=== PATIENT | male | born 1950 | race Caucasian/White ===

== ENCOUNTER 2019-10-24 14:37 | Outpatient (CLI) | payer MEDICARE, SELFPAY ==
[2019-10-24 14:45] LABS: Hematocrit 50.4 % (37.0-46.0); Hemoglobin 16.9 g/dL (12.4-15.3); Mean Corpuscular HGB Conc 33.5 g/dL (32.0-36.0); Mean Corpuscular Hemoglobin 36.3 pg (27.0-31.0); Mean Corpuscular Volume 108.2 fL (78.0-102.0); Mean Platelet Volume 8.8 fl (8.7-11.0); Platelet Count Result 225 K/mm3 (150-420); Red Blood Count 4.66 M/mm3 (4.70-6.10); Red Cell Distribution Width 13.1 % (11.6-14.4); White Blood Count 12.2 K/mm3 (4.8-10.8)
[2019-10-24 15:29] LABS: Alanine Aminotransferase 31 U/L (16-63); Albumin Level 3.3 g/dL (3.4-5.0); Alkaline Phosphatase 81 U/L (46-116); Anion Gap 8.3 mmol/L (7-16); Aspartate Amino Transferase 22 U/L (15-37); Bilirubin,Total 0.4 mg/dL (0.00-1.00); Blood Urea Nitrogen 19 mg/dL (7-18); Calcium 9.2 mg/dL (8.5-10.1); Carbon Dioxide 33 mmol/L (21-32); Chloride 103 mmol/L (98-108); Cholesterol 163 mg/dL (0-200); Estimated Glomerular Filt Rate > 60; Glucose 103 mg/dL (70-99); HDL Direct 46 mg/dL (40-60); LDL Cholesterol Calculated 101 mg/dL (<130); Osmolality Calculated 292 mOsm/kg (285-295); Potassium 4.3 mmol/L (3.5-5.1); Sodium 140 mmol/L (136-145); Total Protein 7.2 g/dL (6.4-8.2); Triglycerides 82 mg/dL (0-150)
[2019-10-25 15:57] LABS: Ferritin 190 ng/mL (26-388); Iron 114 ug/dL (65-175); Percent Iron Saturation 39 % (12-57)
== END 2019-10-24 14:38 | disposition home or self-care (01) ==
LOC: CHSLAB 14:39
PROVIDERS: PCP Family Medicine; Visit Provider Family Medicine
DX: I10 Essential (primary) hypertension (principal)
CPT/HCPCS: 36415; 80053; 80061; 82728; 83540; 83550; 85027

== ENCOUNTER 2023-05-05 10:59 | Outpatient (CLI) | payer MEDICARE, OTHER, SELFPAY ==
[2023-05-05 11:30] LABS: Basophils Absolute Auto 0.09 K/mm3 (0.00-0.10); Basophils Percent Auto 0.9 % (0.0-1.0); Eosinophils Absolute Auto 0.27 K/mm3 (0.02-0.50); Eosinophils Percent Auto 2.8 % (1.0-6.0); Hematocrit 56.3 % (37.0-46.0); Hemoglobin 18.3 g/dL (12.4-15.3); Immature Granulocyte Absolute 0.11 K/mm3 (0.00-0.00); Immature Granulocyte Percent A 1.1 % (0.0-0.0); Lymphocytes Absolute Auto 2.28 K/mm3 (1.10-4.50); Lymphocytes Percent Auto 23.4 % (18.0-42.0); Mean Corpuscular HGB Conc 32.5 g/dL (32.0-36.0); Mean Corpuscular Hemoglobin 35.7 pg (27.0-31.0); Mean Platelet Volume 9.1 fl (8.7-11.0); Monocytes Absolute Auto 0.74 K/mm3 (0.10-0.90); Monocytes Percent Auto 7.6 % (2.0-11.0); Neutrophils Absolute Auto 6.2 K/mm3 (1.7-7.2); Neutrophils Percent Auto 64.2 % (50.0-70.0); Platelet Count Result 175 K/mm3 (150-420); Red Blood Count 5.12 M/mm3 (4.70-6.10); Red Cell Distribution Width 12.5 % (11.6-14.4); White Blood Count 9.7 K/mm3 (4.8-10.8)
[2023-05-05 12:12] LABS: Appearance Urine Clear (Clear); Bilirubin Urine 1+ (Negative); Blood Urine Negative (Negative); Glucose Urine UA Negative (Negative); Ketones Urine Negative (Negative); Leukocyte Esterase Ur Negative LEU/UL (Negative); Nitrate Urine Negative (Negative); Protein Urine Negative (Negative); Specific Grav Ur >= 1.030 (1.010-1.020); Urobilinogen Urine 0.2 mg/dL (0.2-1.0); pH Urine 5.5 (5.0-8.0)
[2023-05-05 12:20] LABS: Add Urine Microscopic? YES; Bacteria Urine Trace /hpf; Color Urine Dark Yellow (Yellow); Mucus Urine Moderate /lpf; RBC Urine None seen /hpf (0-2); WBC Urine None seen /hpf (0-3)
[2023-05-05 12:54] LABS: Alanine Aminotransferase 35 U/L (16-63); Albumin Level 3.5 g/dL (3.4-5.0); Alkaline Phosphatase 77 U/L (46-116); Anion Gap 4 mmol/L (8-16); Aspartate Amino Transferase 20 U/L (15-37); Bilirubin,Total 0.5 mg/dL (0.00-1.00); Blood Urea Nitrogen 14 mg/dL (7-18); Calcium 9.4 mg/dL (8.5-10.1); Carbon Dioxide 33 mmol/L (21-32); Chloride 101 mmol/L (98-108); Cholesterol 160 mg/dL (0-200); Estimated Glomerular Filt Rate > 60; Glucose 92 mg/dL (70-99); HDL Direct 42 mg/dL (40-60); LDL Cholesterol Calculated 108 mg/dL (<130); Osmolality Calculated 286 mOsm/kg (285-295); Potassium 4.6 mmol/L (3.5-5.1); Sodium 138 mmol/L (136-145); Total Protein 7.2 g/dL (6.4-8.2); Triglycerides 51 mg/dL (0-150)
[2023-05-05 13:15] LABS: Thyroid Stimulating Hormone Reflex 3.14 u/IU/mL (0.36-3.74)
[2023-05-06 09:20] LABS: Immature Reticulocyte Fraction 14.4 % (2.0-16.52); Reticulocyte Hemoglobin Conten 39.8 pg (28.0-35.0); Reticulocyte Percent 1.52 % (0.50-1.50); Reticulocytes Absolute 0.08 M/mm3 (0.02-0.1)
[2023-05-06 09:55] LABS: Vitamin B12 430 pg/mL (193-986)
[2023-05-08 06:27] LABS: Hemoglobin A1C 5.6 % (<5.7)
== END 2023-05-05 11:00 | disposition home or self-care (01) ==
LOC: CHSLAB 11:01
PROVIDERS: PCP Nurse Practitioner Family; Visit Provider Nurse Practitioner Family
DX: R73.09 Other abnormal glucose (principal); R35.81 Nocturnal polyuria; I10 Essential (primary) hypertension; R71.8 Other abnormality of red blood cells
CPT/HCPCS: 36415; 80053; 80061; 81001; 82607; 83036; 84443; 85025; 85046

== ENCOUNTER 2023-10-23 14:07 | Outpatient (NON) | payer MEDICARE, OTHER, SELFPAY | END 2023-10-23 14:08 | disposition home or self-care (01) | LOC: CHSLAB 14:09 | PROVIDERS: Visit Provider Nurse Practitioner Family | DX: Z98.890 Other specified postprocedural states (principal) | CPT/HCPCS: 87070; 87075; 87205 ==

== ENCOUNTER 2023-10-23 15:00 | Outpatient (CLI) | payer MEDICARE, OTHER, SELFPAY ==
--- NOTE | ~2023-10-23 | US_ITS ---
EXAMINATION: US soft tissue UE LT DATE: 10/23/2023 16:15 INDICATION: Left upper limb swelling TECHNIQUE: Multiple grayscale and Doppler ultrasound images of the region of concern at the left uppe r arm were obtained. COMPARISON: None FINDINGS: Refraction artifact is seen extending along the surgical wound at the region of concern. There is und erlying hypoechoic reticulated pattern of subcutaneous edema. No abscess or abnormal soft tissue mass es. Vascular flow is identified on color Doppler within an artery and pair of accompanying compressib le veins in the region of concern. IMPRESSION: 1. Subcutaneous edema without evident abscess or venous thrombosis in the left upper arm region of co ncern. Reviewed, dictated and finalized at location A. IMPRESSION: 1. Subcutaneous edema without evident abscess or venous thrombosis in the left upper arm region of concern.
== END 2023-10-23 15:01 | disposition home or self-care (01) ==
LOC: ANHIMG 15:00
PROVIDERS: PCP Nurse Practitioner Family; Visit Provider Nurse Practitioner Family
DX: M25.551 Pain in right hip (principal); Z98.890 Other specified postprocedural states
CPT/HCPCS: 76882

== ENCOUNTER 2024-03-12 14:03 | Outpatient (CLI) | payer MEDICARE, OTHER, SELFPAY ==
--- NOTE | ~2024-03-12 | XR_ITS ---
EXAMINATION: XR chest 2V Exam Date/Time: 03/12/2024 14:10 PSYCHOLOGY CLINICIAN HISTORY: SOB/wheezing Comparison: None. RESULT: Lines, tubes, and devices: Left lower neck surgical clips. Vascular stent over the upper mediastinum . Lungs and pleura: Streaky right basilar and subsegmental left basilar opacities. Left hemithorax vol ume loss. Mild right and moderate left costophrenic angle blunting. Cardiomediastinal silhouette: Stable. Other: No acute osseous or upper abdominal finding. IMPRESSION: Minimal right basilar and subsegmental left basilar atelectasis, infection not excluded. Small right and moderate left pleural effusions. Reviewed, dictated and finalized at location K. HOLOGY CLINICIAN
[2024-03-12 14:30] LABS: Basophils Absolute Auto 0.05 K/mm3 (0.00-0.10); Basophils Percent Auto 0.7 % (0.0-1.0); Eosinophils Absolute Auto 0.06 K/mm3 (0.02-0.50); Eosinophils Percent Auto 0.9 % (1.0-6.0); Hematocrit 48.7 % (37.0-46.0); Hemoglobin 15.1 g/dL (12.4-15.3); Immature Granulocyte Absolute 0.02 K/mm3 (0.00-0.00); Immature Granulocyte Percent A 0.3 % (0.0-0.0); Lymphocytes Percent Auto 20.3 % (18.0-42.0); Mean Corpuscular Hemoglobin 33.8 pg (27.0-31.0); Mean Corpuscular Volume 108.9 fL (78.0-102.0); Monocytes Absolute Auto 0.76 K/mm3 (0.10-0.90); Neutrophils Absolute Auto 4.61 K/mm3 (1.70-7.20); Neutrophils Percent Auto 66.8 % (50.0-70.0); Platelet Count Result 196 K/mm3 (150-420); Red Blood Count 4.47 M/mm3 (4.70-6.10); Red Cell Distribution Width 14.4 % (11.6-14.4); White Blood Count 6.9 K/mm3 (4.8-10.8)
[2024-03-12 14:54] LABS: Alanine Aminotransferase 26 U/L (16-63); Albumin Level 2.7 g/dL (3.4-5.0); Alkaline Phosphatase 107 U/L (46-116); Anion Gap 2 mmol/L (4-12); Aspartate Amino Transferase 20 U/L (15-37); Bilirubin,Total 0.5 mg/dL (0.00-1.00); Blood Urea Nitrogen 18 mg/dL (7-18); Carbon Dioxide 42 mmol/L (21-32); Chloride 103 mmol/L (98-108); Cholesterol 87 mg/dL (0-200); Estimated Glomerular Filt Rate > 60; Glucose 100 mg/dL (70-99); HDL Direct 45 mg/dL (40-60); LDL Cholesterol Calculated 33 mg/dL (<130); NT Pro B Type Natriuretic Pept 4192 pg/mL (0-125); Osmolality Calculated 305 mOsm/kg (285-295); Potassium 3.7 mmol/L (3.5-5.1); Sodium 147 mmol/L (136-145); Thyroid Stimulating Hormone 2.79 uIU/mL (0.36-3.74); Total Protein 6.9 g/dL (6.4-8.2); Triglycerides 47 mg/dL (0-150)
[2024-03-14 13:33] LABS: Iron 22 ug/dL (65-175); Percent Iron Saturation 6 % (12-57)
== END 2024-03-12 14:04 | disposition home or self-care (01) ==
LOC: CHSLAB 14:04
PROVIDERS: PCP Nurse Practitioner Family; Visit Provider Nurse Practitioner Family
DX: R60.0 Localized edema (principal); R35.81 Nocturnal polyuria; I63.239 Cerebral infarction due to unspecified occlusion or stenosis of unspecified carotid artery; R06.02 Shortness of breath; R09.89 Other specified symptoms and signs involving the circulatory and respiratory systems; R79.89 Other specified abnormal findings of blood chemistry; J98.11 Atelectasis; J90 Pleural effusion, not elsewhere classified
CPT/HCPCS: 36415; 71046; 80053; 80061; 83540; 83550; 83880; 84443; 85025

== ENCOUNTER 2024-03-14 15:45 | Outpatient (CLI) | payer MEDICARE, OTHER, SELFPAY ==
--- NOTE | 2024-03-14 16:03 | ECG_ITS ---
Test Date: 2024-03-14 16:13:50 Measurements Intervals [place] Rate: 83 P: 71 VA: 199 QRS: 95 QRSD: 95 T: 60 QT: 358 QTc: 423 Interpretive Statements SINUS RHYTHM WITH OCCASIONAL VENTRICULAR PREMATURE COMPLEXES RIGHT AXIS DEVIATION BORDERLINE R WAVE PROGRESSION, ANTERIOR LEADS MINIMAL Q WAVES- INFERIOR LEADS MODERATE T-WAVE ABNORMALITY, CONSIDER ANTERIOR ISCHEMIA ABNORMAL ECG No previous ECG available for comparison Electronically Signed On 03-14-2024 18:22:23 BRICK CLEANER by Héctor Fisher D.O.
[2024-03-14 16:17] LABS: INR 1.3; Prothrombin Time 13.5 Seconds (9.50-12.1)
[2024-03-14 16:20] LABS: D Dimer 1.29 mg/L (0.19-0.50)
== END 2024-03-14 15:46 | disposition home or self-care (01) ==
PROVIDERS: PCP Nurse Practitioner Family; Visit Provider Nurse Practitioner Family
DX: R79.89 Other specified abnormal findings of blood chemistry (principal); R09.89 Other specified symptoms and signs involving the circulatory and respiratory systems; R60.0 Localized edema; R06.02 Shortness of breath
CPT/HCPCS: 36415; 85380; 85610; 93005

== ENCOUNTER 2024-03-15 11:06 | Emergency (ER) | payer MEDICARE, OTHER, SELFPAY ==
[2024-03-15] VITALS (11 sets, daily range): BP systolic 130–164; BP diastolic 78–98; PULSE 71–84; RESP 18–21; TEMP 36.6; O2SAT 77–98
--- NOTE | ~2024-03-15 | XR_ITS ---
XR chest 1V portable Ordering provider: Jose Hood MD History: 73 years Male with . sob,FATIGUE . Comparison: March 12 2024 FINDINGS: MEDIASTINUM: The cardiac silhouette is moderately enlarged. Congestive adan. LUNGS: No pneumothorax. Opacification in the left lower lobe suggestive of atelectasis versus pneumon ia with pleural effusion. Bilateral interstitial changes. OTHER: No free air under the diaphragm. IMPRESSION: Cardiomegaly with cardiac decompensation and pulmonary edema. Left lower lobe atelectasis versus pneu monia with pleural effusion Reviewed, dictated and finalized at location A. RIBUTION LEAD IMPRESSION: Cardiomegaly with cardiac decompensation and pulmonary edema. Left lower lobe a telectasis versus pneumonia with pleural effusion
--- NOTE | ~2024-03-15 | CT_ITS ---
EXAMINATION: CTA chest PE protocol DATE: 03/15/2024 13:31 INDICATION: Shortness of breath. TECHNIQUE: Computed tomography angiography (CTA) of the chest was performed with 100 mL Omnipaque-350 intravenous contrast timed to evaluate the pulmonary arteries. Coronal maximum intensity projection 3D-reconstructions were created by the technologist. Automated exposure control and iterative reconst ruction technique were employed. The dose-length product was 720 mGy-cm. COMPARISON: Chest single view 03/15/2024 FINDINGS: There is mild elevation of left hemidiaphragm. There are small pleural effusions, left wors e than right. There is dependent atelectasis bilaterally. Calcified pulmonary nodules and calcified h ilar lymph nodes are consistent with old granulomatous disease. Cardiomegaly is noted. There is a tra ce pericardial effusion. The central pulmonaries are enlarged, consistent with pulmonary arterial hyp ertension. There is no pulmonary embolus. There is a moderate volume of ascites. There are bridging e ndplate osteophytes at multiple levels in the spine, consistent with diffuse idiopathic skeletal hype rostosis (DISH). IMPRESSION: 1. No pulmonary embolus. 2. Small pleural effusions, left worse than right. 3. Moderate volume of ascites. Reviewed, dictated and finalized at location A. TING TEACHER
--- NOTE | 2024-03-15 11:28 | ECG_ITS ---
Test Date: 2024-03-15 11:53:47 Measurements Intervals [place] Rate: 72 P: 83 [place]: 197 QRS: 77 QRSD: 96 T: 62 QT: 379 QTc: 417 Interpretive Statements SINUS RHYTHM LOW QRS VOLTAGE IN LIMB LEADS BORDERLINE R WAVE PROGRESSION, ANTERIOR LEADS T WAVE ABNORMALITY IN ANTERIOR LEADS- COSIDER ISCHEMIA BASELINE ARTIFACT- I, AVR, AVL, AVF, V3, V6 ABNORMAL ECG Compared to ECG 03/14/2024 16:13:50 NO SIGNIFICANT CHANGE Electronically Signed On 03-15-2024 12:08:15 CLIENT CARE REPRESENTATIVE by Héctor Fisher D.O.
--- NOTE | 2024-03-15 11:36 | ED.CHESTPAIN ---
HPI - Chest Pain General Chief Complaint: Recheck/Abnormal Lab/Rx Stated Complaint: abnormal lab results Time Seen by Provider: 03/15/24 11:25 Source: patient Mode of arrival: ambulatory Limitations: no limitations History of Present Illness HPI narrative: patient is a 73-year-old male with a significant past medical history that presents today for abnormal lab work. Patient by his primary care physician had lab work done and some that was abnormal and because of this she told him that she wanted him to go to the emergency department to get checked out. First full his BNP was over 4000 he does have a known history of heart failure however he has never had any testing done for this he has never done an echocardiogram for this and he does not see the doctor very often before this recent visit he had not seen a doctor and probably close to 10 years. His says he is very stubborn man comes to seeing physicians. He does also have some shortness of breath however he does wear 2 L of oxygen at home. She said he is not very compliant with wearing the oxygen at home however. He denies any chest pain. He does have lower extremity edema as well. This is chronic however he does wear for stockings as well. Pertinent past history: other (COPD) Onset (ago): day(s) Timing of current episode: constant Prior episodes: Yes Onset: during exertion Pain radiation: none Severity: mild Relieving factors: nothing Exacerbating factors: exertion and inspiration Associated symptoms: dyspnea Risk Factors Coronary artery disease risk factors: smoking history Thoracic aortic dissection risk factors: none Related Data Home Medications Medication Instructions Recorded Confirmed atorvastatin 40 mg tablet 40 mg PO DAILY 12/29/23 03/15/24 Allergies Allergy/AdvReac Type Severity Reaction Status Date / Time No Known Allergies Allergy Verified 03/15/24 11:41 Review of Systems Review of Systems: All systems reviewed & are unremarkable except as noted in HPI and below Constitutional: Constitutional: Reports as per HPI Eyes: Eyes: Reports no additional eye complaints ENT: Reports system reviewed and no additional complaints, except as documented Cardiovascular: Cardiovascular: Reports no additional cardiovascular complaints Respiratory: Respiratory: Reports as per HPI Gastrointestinal: Gastrointestinal: Reports no additional gastrointestinal complaints Genitourinary: Genitourinary: Reports no additional male genitourinary complaints Musculoskeletal: Musculoskeletal: Reports no additional musculoskeletal complaints Integumentary/Breasts: Skin/Breast: Reports system reviewed and no additional complaints, except as docu Neurologic: Reports system reviewed and no additional complaints, except as documented Psychiatric: Psychiatric: Reports no additional psychiatric complaints Endocrine: Endocrine: Reports no additional endocrine complaints Hematologic/Lymphatic: Hematologic/Lymphatic: Reports no additional hematologic/lymphatic complaints Allergic/Immunologic: Allergic/Immunologic: Reports no additional allergic/immunologic complaints [facility] Past Medical History Medical History Carotid artery stenosis with cerebral infarction Cigarette nicotine dependence HTN (hypertension) Hypertension Smoker Swelling of left upper extremity Surgical History Surgical History H/O endarterectomy History of appendectomy History of cholecystectomy Family History Family History Sibling Cancer Social History Social History Smoking packs per day: 1 Smoking cigarettes per day: 20.0 Years smoked: 40 Smoking pack-years: 40.00 Smoking status: Former smoker Tobacco type: cigarettes Alcohol intake: current Drinks per week: 8 Substance use type: does not use Do You Feel Safe in your Home?: Yes Lack of Transportation: No Lack of Food: Never True Current Housing: I Have Housing Concerned About Future Housing: No Difficulty Paying Gas/Electric Bills: No Difficulty Paying for Meds: No Currently Unemployed: No Education: High School Diploma/GED Difficulty w/ Childcare or Family Care: No Living arrangements: with family Additional living arrangements comments: Lives with significant other Occupation/Education: retired Gender identity (if verbalized by the patient): Male Exam Const: General: cooperative, healthy appearing, comfortable and no acute distress HENMT: Head: normal to inspection, No palpable skull fracture present and normocephalic Eyes: General: appearance normal, both eyes and all related structures Neck: Neck: normal visual inspection, full ROM and no lymphadenopathy Chest: Chest palpation & inspection: normal inspection of the chest and normal palpation of entire chest wall Resp: Effort & Inspection: normal respiratory effort and able to speak in complete sentences Auscultation: wheezes Percussion: percussion normal Cardio: Jugular venous distension: no JVD Palpation: normal PMI Rate: regular rate Rhythm: regular rhythm Heart sounds: S1 normal heart sound present and S2 normal heart sound present Bruits: Abdominal aortic bruit present Peripheral pulses: Peripheral pulses 2+ throughout Other: GI: Inspection: normal to inspection and abdominal wall ecchymosis Back/Spine/Pelvis: Back: no CVA tenderness Skin: General skin exam: normal color, no rashes or lesions noted and elasticity normal Neuro: General: oriented to person, oriented to place and oriented to time Extrem: General: normal to inspection, full ROM and capillary refill normal Psych: Appearance: grossly normal and well kempt Course Vital Signs Vital signs: Vital Signs Oxygen Delivery Room Air 03/15/24 11:06 Temperature 97.8 F 03/15/24 11:09 Pulse Rate 81 03/15/24 13:50 Respiratory Rate 21 H 03/15/24 13:50 Blood Pressure 164/95 H 03/15/24 13:50 Pulse Oximetry 97 03/15/24 13:50 Oxygen Delivery Nasal Cannula 03/15/24 11:30 Oxygen Flow Rate 3 03/15/24 11:30 MDM - Chest Pain MDM Narrative Medical decision making narrative: patient has seen a physician many years until recently. We had his lab work done his BNP was elevated over 4000 and he is on 2 L O2 at home. But he has had increased shortness of breath here lately and bilateral pitting edema on his lower extremities. We will redraw all his lab work including a BNP and troponins and do full cardiac workup, will also do a full respiratory workup with well and given a DuoNeb treatment and keep on nasal cannula O2 he is currently on 2 L. also give IV Lasix so gets some loose watery and off and get this BMP down. Differential Diagnosis Differential diagnosis: Likely other ( COPD exacerbation, heart failure exacerbation) Medical Records Data Attestation: I reviewed the patient's medical records. Lab Data Attestation: I reviewed the patient's lab results. 03/15/24 11:47 03/15/24 11:47 Labs: Lab Results 03/15/24 03/15/24 Range/Units 11:47 12:25 WBC 7.6 (4.8-10.8) K/mm3 RBC 4.39 L (4.70-6.10) M/mm3 Hgb 14.6 (12.4-15.3) g/dL Hct 47.0 H (37.0-46.0) % MCV 107.1 H (78.0-102.0) fL MCH 33.3 H (27.0-31.0) pg MCHC 31.1 L (32-36) g/dL RDW 14.6 H (11.6-14.4) % Plt Count 203 (150-420) K/mm3 MPV 9.0 (8.7-11.0) fl Immature Gran % (Auto) 0.1 H (0.0-0.0) % Neut % (Auto) 71.8 H (50.0-70.0) % Lymph % (Auto) 14.7 L (18.0-42.0) % [place] % (Auto) 11.8 H (2.0-11.0) % Eos % (Auto) 1.1 (1.0-6.0) % Baso % (Auto) 0.5 (0.0-1.0) % Lymph # (Auto) 1.11 (1.10-4.50) K/mm3 [place] # (Auto) 0.89 (0.10-0.90) K/mm3 Eos # (Auto) 0.08 (0.02-0.50) K/mm3 Baso # (Auto) 0.04 (0.00-0.10) K/mm3 Abs Immat Gran (auto) 0.01 H (0.00-0.00) K/mm3 Absolute Neuts (auto) 5.44 (1.70-7.20) K/mm3 Absolute Nucleated RBC 0.00 (0.00-0.00) K/mm3 Nucleated RBC % 0.0 (0-0.0) % D-Dimer 1.24 H* (0.19-0.50) mg/L Sodium 143 (136-145) mmol/L Potassium 4.0 (3.5-5.1) mmol/L Chloride 101 (98-108) mmol/L Carbon Dioxide 38 H (21-32) mmol/L Anion Gap 4 (4-12) mmol/L BUN 22 H (7-18) mg/dL Creatinine 1.06 (0.70-1.30) mg/dL Estim Creat Clear Calc 67 ml/min Estimated GFR > 60 (59 - ) Glucose 112 H (70-99) mg/dL Calculated Osmolality 300 H (285-295) mOsm/kg Calcium 9.1 (8.5-10.1) mg/dL Magnesium 2.3 (1.8-2.4) mg/dL Total Bilirubin 0.7 (0.00-1.00) mg/dL AST 20 (15-37) U/L ALT 25 (16-63) U/L Alkaline Phosphatase 112 (46-116) U/L Troponin I 20.3 (0.00-60.4) ng/L NT-Pro-B Natriuret Pep 4209 H (0-125) pg/mL Total Protein 6.6 (6.4-8.2) g/dL Albumin 2.6 L (3.4-5.0) g/dL Urine Color Light yellow (Yellow) Urine Appearance Clear (Clear) Urine pH 6.5 (5.0-8.0) Ur Specific [place] 1.010 (1.010-1.020) Urine Protein Negative (Negative) Urine Glucose (UA) Negative (Negative) Urine Ketones Negative (Negative) Ur Blood (Man) Negative (Negative) Urine Nitrate Negative (Negative) Urine Bilirubin Negative (Negative) Urine Urobilinogen 0.2 (0.2-1.0) mg/dL Leukocyte Esterase Rfl Negative (Negative) BHUPENDRA/UL Discharge Plan Discharge Clinical Impression: Pneumonia, Acute exacerbation of CHF (congestive heart failure), COPD (chronic obstructive pulmonary disease) Patient Disposition: Home, Self-Care Condition: Stable Instructions: Antibiotic Form Prescriptions: New doxycycline hyclate 100 mg tablet 100 mg PO BID Qty: 20 0RF amoxicillin-pot clavulanate 875-125 mg tablet 1 tablet PO Q12H Qty: 20 0RF furosemide 20 mg tablet 20 mg PO DAILY Qty: 30 0RF Breztri Aerosphere 160-9-4.8 mcg/actuation HFA aerosol inhaler 2 inh inhalation BID Qty: 10.7 0RF No Action aspirin [Aspir-81] 81 mg tablet,delayed release (DR/EC) 81 mg PO DAILY Qty: 90 0RF atorvastatin 40 mg tablet 40 mg PO DAILY albuterol sulfate 90 mcg/actuation HFA aerosol inhaler 1 puff inhalation Q4H PRN (Reason: shortness of breath or wheezing) Qty: 8.5 2RF metoprolol tartrate 25 mg tablet 12.5 mg PO BID Qty: 60 0RF doxycycline monohydrate 100 mg tablet 100 mg PO BID 10 Days Qty: 20 0RF lisinopril 5 mg tablet 5 mg PO DAILY Qty: 30 2RF torsemide 10 mg tablet 10 mg PO QAM Qty: 30 3RF Follow-up/Referrals: Renetta Mendoza APRN [Primary Care Provider] - Time of Disposition: 14:12
[2024-03-15] MEDS: methylPREDNISolone SOD SUCC 125 MG VIAL IV PUSH (11:50)
[2024-03-15] MEDS: FUROSEMIDE INJ 40 MG/4 ML VIAL IV PUSH (11:50)
[2024-03-15 11:52] LABS: Basophils Absolute Auto 0.04 K/mm3 (0.00-0.10); Basophils Percent Auto 0.5 % (0.0-1.0); Eosinophils Absolute Auto 0.08 K/mm3 (0.02-0.50); Eosinophils Percent Auto 1.1 % (1.0-6.0); Hemoglobin 14.6 g/dL (12.4-15.3); Immature Granulocyte Absolute 0.01 K/mm3 (0.00-0.00); Immature Granulocyte Percent A 0.1 % (0.0-0.0); Lymphocytes Absolute Auto 1.11 K/mm3 (1.10-4.50); Lymphocytes Percent Auto 14.7 % (18.0-42.0); Mean Corpuscular HGB Conc 31.1 g/dL (32-36); Mean Corpuscular Hemoglobin 33.3 pg (27.0-31.0); Mean Corpuscular Volume 107.1 fL (78.0-102.0); Monocytes Absolute Auto 0.89 K/mm3 (0.10-0.90); Monocytes Percent Auto 11.8 % (2.0-11.0); Neutrophils Absolute Auto 5.44 K/mm3 (1.70-7.20); Neutrophils Percent Auto 71.8 % (50.0-70.0); Platelet Count Result 203 K/mm3 (150-420); Red Blood Count 4.39 M/mm3 (4.70-6.10); Red Cell Distribution Width 14.6 % (11.6-14.4); White Blood Count 7.6 K/mm3 (4.8-10.8)
[2024-03-15 12:07] LABS: D Dimer 1.24 mg/L (0.19-0.50)
[2024-03-15 12:14] LABS: Alanine Aminotransferase 25 U/L (16-63); Albumin Level 2.6 g/dL (3.4-5.0); Alkaline Phosphatase 112 U/L (46-116); Anion Gap 4 mmol/L (4-12); Aspartate Amino Transferase 20 U/L (15-37); Bilirubin,Total 0.7 mg/dL (0.00-1.00); Blood Urea Nitrogen 22 mg/dL (7-18); Calcium 9.1 mg/dL (8.5-10.1); Carbon Dioxide 38 mmol/L (21-32); Chloride 101 mmol/L (98-108); Estimated CRCL calculation 67 ml/min; Estimated Glomerular Filt Rate > 60; Glucose 112 mg/dL (70-99); Magnesium 2.3 mg/dL (1.8-2.4); NT Pro B Type Natriuretic Pept 4209 pg/mL (0-125); Osmolality Calculated 300 mOsm/kg (285-295); Sodium 143 mmol/L (136-145); Total Protein 6.6 g/dL (6.4-8.2); Troponin I 20.3 ng/L (0.00-60.4)
[2024-03-15 12:28] LABS: Add Urine Microscopic? NO; Appearance Urine Clear (Clear); Bilirubin Urine Negative (Negative); Blood Urine Negative (Negative); Color Urine Light Yellow (Yellow); Glucose Urine UA Negative (Negative); Ketones Urine Negative (Negative); Leukocyte Esterase Ur Negative LEU/UL (Negative); Nitrate Urine Negative (Negative); Protein Urine Negative (Negative); Urobilinogen Urine 0.2 mg/dL (0.2-1.0); pH Urine 6.5 (5.0-8.0)
--- NOTE | 2024-03-15 13:12 | PC.NURSE ---
PT HAS COMPLETED 1ST ANTIBIOTIC, AWAITING CT AT THIS TIME. PT HAS SIG OTHER AT BEDSIDE. DENIES ANY NEEDS OR COMPLAINTS. NAD NOTED. WILL CONTINUE TO MONITOR.
[2024-03-15] MEDS: AZITHROMYCIN 500 MG/NS 250 ML 500 MG/250 ML BAG 250 MG IVPB (13:47)
--- NOTE | 2024-03-15 13:56 | PC.NURSE ---
PT HAS RETURNED FROM CT, HAS IV ANTIBIOTICS INFUSING ORDERED WITHOUT DIFFICULTY. PT IS EATING CHIPS AT THIS TIME, DECLINED SANDWICH. WATER AND WARM BLANKET PROVIDED. PT DENIES ANY COMPLAINTS. VSS PER MONITOR. WILL CONTINUE TO MONITOR.
== END 2024-03-15 15:00 | disposition home or self-care (01) ==
PROVIDERS: Emergency Provider Family Medicine; PCP Nurse Practitioner Family
DX: J18.9 Pneumonia, unspecified organism (principal); I11.0 Hypertensive heart disease with heart failure; I50.9 Heart failure, unspecified; I25.2 Old myocardial infarction; Z87.891 Personal history of nicotine dependence; Z99.81 Dependence on supplemental oxygen
CPT/HCPCS: 36415; 71045; 71275; 80053; 81003; 83735; 83880; 84484; 85025; 85380; 93005; 96365; 96367; 96375; 99284; J0456; J0696; J1940; J2919; Q9967

== ENCOUNTER 2024-03-17 11:51 | Outpatient (CLI) | payer MEDICARE, OTHER, SELFPAY ==
--- NOTE | 2024-03-17 11:55 | ECHO_ITS ---
Patient Info Name: Bassem Huffman Age: 73 years : 1950 Gender: Male Ht: 66 in Wt: 213 lbs BSA: 2.16 m2 HR: 70 bpm BP: 145 / 93 mmHg Heart Rhythm: Sinus Rhythm Technical Quality: Good Exam Date: 03/17/2024 12:44 PM Exam Location: [facility] Patient Status: Outpatient Admit Date: 03/17/2024 Staff Ordering Physician: Emerson Randhawa DO [employer] G[employer]er [employer] Lubricator Tender: Jose Pederson RDCS Attending Provider: Emerson Randhawa DO Referring Physician: Edsi SHERMAN; Exam Type: CA echo doppler color flow Study Info Indications - other specifgied postprocedural state Complete two-dimensional, color flow and Doppler transthoracic echocardiogram is performed. Summary 1. Complete two-dimensional, color flow and Doppler transthoracic echocardiogram is performed. 2. Left ventricular chamber dimension is normal. 3. Left ventricular systolic function is normal, estimated at 55-60%. 4. There is mild concentric increased left ventricular wall thickness. 5. The left ventricular diastolic function is grade I diastolic dysfunction. 6. Right atrial chamber dimension is mildly enlarged. 7. There is trace tricuspid valve regurgitation. 8. No pulmonary hypertension, estimated pulmonary arterial systolic pressure is 34 mmHg. 9. Dilated inferior vena cava with >50% collapse upon inspiration consistent with elevated right atrial pressure, 10 mmHg. 10. There is trivial pericardial effusion. Left Ventricle Tissue doppler E/e' is not measured. Left ventricular chamber dimension is normal. Left ventricular systolic function is normal, estimated at 55-60%. There is mild concentric increased left ventricular wall thickness. The left ventricular diastolic function is grade I diastolic dysfunction. Right Ventricle Right ventricular systolic function is normal and with normal TAPSE 2.3 cm. Right ventricular chamber dimension is normal. Left Atria Left atrial chamber dimension is normal. Right Atria Right atrial chamber dimension is mildly enlarged. Aortic Valve The aortic valve is trileaflet. There is no aortic valve stenosis. There is no aortic valve regurgitation. Pulmonic Valve There is no pulmonic regurgitation. Mitral Valve There is no mitral valve stenosis. There is no mitral valve regurgitation. Tricuspid Valve There is trace tricuspid valve regurgitation. No pulmonary hypertension, estimated pulmonary arterial systolic pressure is 34 mmHg. Pericardium/Pleural There is trivial pericardial effusion. Inferior Vena Cava Dilated inferior vena cava with >50% collapse upon inspiration consistent with elevated right atrial pressure, 10 mmHg. Aorta The aortic root size at the sinus of Valsalva is normal. Left Ventricular Outflow Tract Name Value Normal LVOT 2D LVOT Diameter 2.1 cm LVOT Doppler LVOT Peak Velocity 88 cm/s LVOT Peak Gradient 3 mmHg LVOT Mean Gradient 2 mmHg LVOT VTI 21 cm LVOT VTI/AV VTI Ratio 1.0 LVOT Stroke Volume 71 ml Tricuspid Valve Name Value Normal TV Regurgitation Doppler TR Peak Velocity 246 cm/s TR Peak Gradient 19 mmHg Estimated PAP/RSVP RA Pressure 10 mmHg <=5 PA Systolic Pressure 34 mmHg <36 RV Systolic Pressure 34 mmHg <36 Aortic Valve Name Value Normal AV Doppler AV Peak Velocity 102 cm/s AV Peak Gradient 4 mmHg AV Mean Gradient 3 mmHg AV VTI 21 cm AV Area (Cont Eq VTI) 3.3 cm2 >=3.0 AV Area (Cont Eq Kirk) 2.9 cm2 AV V1/V2 Ratio 0.86 AV Regurgitation 2D LVOT Area 3.3 cm2 Ventricles Name Value Normal LV Dimensions 2D/MM IVS Diastolic Thickness (2D) 1.3 cm 0.6-1.0 LVID Diastole (2D) 4.3 cm 4.2-5.8 LVIW Diastolic Thickness (2D) 1.2 cm 0.6-1.0 LVID Systole (2D) 2.8 cm 2.5-4.0 LVOT Diameter 2.1 cm LV Mass (2D Cubed) 197.28 g 88.00-224.00 LV Mass Index (2D Cubed) 91 g/m2 49-115 Relative Wall Thickness (2D) 0.57 LV Fractional Shortening/Ejection Fraction 2D/MM LV Fractional Shortening (2D) 35 % 25-43 LV EF (2D Teicholz) 65 % 52-72 LV Diastolic Volume (4C MOD) 132 ml LV EF (4C MOD) 50 % LV Diastolic Volume (2C MOD) 135 ml LV EF (2C MOD) 55 % LV Diastolic Volume (BP MOD) 134 ml 62-150 LV Diastolic Volume Index (BP MOD) 62 ml/m2 34-74 LV Systolic Volume (BP MOD) 64 ml 21-61 LV Systolic Volume Index (BP MOD) 30 ml/m2 11-31 LV EF (BP MOD) 52 % 52-72 LV Diastolic Length (4C) 9.1 cm LV Systolic Length (4C) 7.1 cm LV Stroke Volume (4C MOD) 66 ml Atria Name Value Normal LA Dimensions LA Volume (4C A-L) 44 ml LA Volume (BP A-L) 52 ml RA Dimensions RA Area (4C) 26.0 cm2 <=18.0 Report Signatures
== END 2024-03-17 11:52 | disposition home or self-care (01) ==
LOC: CHSIMG 11:51
PROVIDERS: PCP Nurse Practitioner Family; Visit Provider Family Medicine
DX: Z98.890 Other specified postprocedural states (principal); I50.1 Left ventricular failure, unspecified
CPT/HCPCS: 93306

== ENCOUNTER 2024-08-31 15:26 | Outpatient (CLI) | payer MEDICARE, SELFPAY ==
--- OUTSIDE RECORDS SUMMARY | 2024-08-31 16:19 | XMS_ITS | Clinical Summary ---
Author Organization [facility] Address [address] [place] [address] Care Team Providers Care Construction Plumber Name Role Phone Emerson Randhawa DO Primary Care Provider [phone] Allergies No known active allergies Medications lisinopril (PRINIVIL) 20 MG tablet Take 1 tablet (20 mg total) by mouth daily. Active aspirin EC (ASPIRIN EC) 81 MG tablet Take 1 tablet (81 mg total) by mouth daily. Active Active Problems Problem Noted Date Diagnosed Date Carotid stenosis 12/16/2023 S/P carotid endarterectomy 12/15/2023 Assessment & Plan (12/15/2023 8:25 PM CDT): Right side 12/15/2023 Carotid artery stenosis 10/09/2023 Suspected cerebrovascular accident (CVA) 024 Acute cholecystitis due to biliary calculus 03/05 Type 2 diabetes mellitus wit hout complications ([facility]) Family History Medical History Relation Comments Cancer Brother Early Brother Heart Disease Father Relation Status Comments Brother Father Social History Tobacco Use Types Packs/Day Years Used Date Smoking Tobacco: Every Day Cigarettes 0.9 54.4 Started: 03/30/1970 Smokeless Tobacco: Former Chew Tobacco Cessation:Ready to Q uit: Not Asked; Counseling Given: Not Answered Comments:current smoker refused nicotine patch Alcohol Use Standard Drinks/Week Comments Yes 23.3 (1 standard drink = 0.6 oz pure alcohol) 2 beers daily [facility] Utilities Answer Date Recorded In the past 12 months has th e [employer], gas, oil, or water [employer] threatened to shut off services in your home? No 12/16/2023 Humiliation, Afraid, Rape, and Kick questionnair e Answer Date Recorded Within the last year, have y ou been afraid of your partner or ex-partner? No 12/16/2023 Within the last year, have y ou been humiliated or emotionally abused in other ways by your partner or ex-partner? No Within the last year, have y ou been kicked, hit, slapped, or otherwise physically hurt by your partner or ex-partner? No 12/16/2023 Within the last year, have y ou been raped or forced to have any kind of sexual activity by your partner or ex-partner? No 12/16/2023 Overall Financial Resource Strain (CARDIA) Answe r Date Recorded How hard is it for you to pa y for the very basics like food, housing, medical care, and heating? Not hard at all 12/16/2023 Hunger Vital Sign Answer Date Recorded Within the past 12 months, y ou worried that your food would run out before you got the money to buy more. Never true 12/16/19 24 Within the past 12 months, t he food you bought just didn't last and you didn't have money to get more. Never true 12/16/2023 PRAPARE - Transportation Answer Date Re corded In the past 12 months, has l ack of transportation kept you from medical appointments or from getting medications? No 12/02 In the past 12 months, has l ack of transportation kept you from meetings, work, or from getting things needed for daily living? No 12/16/2023 Housing Stability Vital Sign Answer Serjio e Recorded In the last 12 months, was t here a time when you were not able to pay the mortgage or rent on time? No 12/16/2023 In the past 12 months, how m any times have you moved where you were living? 0 12/16/2023 At any time in the past 12 m [facility], were you homeless or living in a group home (including now)? No 12/16/2023 Education Answer Date Recorded What is the highest level of school you have completed or the highest degree you have received? 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 Not on file Not on file Last Filed Vital Signs Vital Sign Reading Time Taken Comments Blood Pressure 117/57 12/16/2023 1:00 PM CDT Pulse 93 12/16/2023 1:00 PM CDT Temperature 36.4 C (97.5 F) 12/16/2023 11:00 AM CDT Respiratory Rate 14 12/16/2023 1:00 PM CDT Oxygen Saturation 97% 12/16/2023 1:00 PM CDT Inhaled Oxygen Concentration - - Weight 87.1 kg (192 lb 0.3 oz) 12/16/2023 6:27 A M CDT Height 181 cm (5' 11.26 ) 12/15/2023 8:19 AM CDT Body Mass Index 26.59 12/15/2023 8:19 AM CDT Plan of Treatment Health Maintenance Due Date Last Done Comments Colorectal Cancer Screening Colonoscopy (10 Years) 1950 Kidney Health Evaluation 1950 Diabetes: Retinopathy Eye Exam 1968 Hepatitis C 1968 DTaP, Tdap and Td Vaccines ( 1 - Tdap) 1969 Pneumococcal Vaccine: 50+ Ye ars (1 of 2 - PCV) 1969 Lung Cancer Screening 2000 Zoster Vaccines (1 of 2) 2000 RSV Immunization or 60+ Years (1 - Risk 60-74 years 1-dose series) 2010 Annual Medicare Wellness Visit 12/25/2015 COVID-19 Vaccine (1 - 2023-2 5 season) 2024 Hemoglobin A1C 04/10/2024 10/10/2023 Lipid Panel 10/09/2024 10/10/2023 AAA SCREENING Completed 03/30/2021 Meningococcal B Vaccine Aged Out No l onger eligible based on patient's age to complete this topic Meningococcal Vaccine Aged Out No hayden fabiano eligible based on patient's age to complete this topic RSV Immunizations Under 20 Months Aged Out No longer eligible based on patient's age to complete this topic Goals Goal Patient Goal Type Associated Problems Recent Progress Patient-Stated? Author Patient will return to prior living situation and remain independent in ADLs upon discharge from hospital Lifestyle No Pema Meneses RN Medical Devices Implanted Type Area Framing Machine Tender Device Identifier Shelf Expiration Date Model / Serial / Lot Graft Intergard Woven 8mm X 30cm - [id number] Implanted:Qty: 1 on 10/15/2023 by Stanislav Soriano MD at [facility] Graft Left: Neck [employer] 10/02/2027 [id number] / [id number] Description:Ingwie notified Patch Sudha. Vasc. Vascu-Guard 0.8cm X 8cm - [id number] Implanted:Qty: 1 on 10/15/2023 by Stanislav Soriano MD at [facility] Mesh Left: Neck [employer] 04/29/2025 [id number] / / [id number]- [id number] Patch Sudha. Vasc. Vascu-Guard 0.8cm X 8cm - [id number] Implanted:Qty: 1 on 12/15/2023 by Stanislav Soriano MD at [facility] Mesh Right: Carotid [employer] 07/13/2025 [id number] / / [id number]- [id number] Agent Hemostatic Surgiflo 8 Ml Kit - [id number] Implanted:Qty: 1 on 10/15/2023 by Stanislav Soriano MD at [facility] Sealant Left: Neck [employer] 08/31/2024 [id number] / / [id number] Agent Hemostatic Surgiflo 8 Ml Kit - [id number] Implanted:Qty: 1 on 10/15/2023 by Stanislav Soriano MD at [facility] Sealant Left: Neck [employer] [id number] 08/31/2024 [id number] / / [id number] Agent Hemostatic Surgiflo 8 Ml Kit - [id number] Implanted:Qty: 1 on 10/15/2023 by Stanislav Soriano MD at [facility] Sealant Left: Neck [employer] [id number] 08/31/2024 [id number] / / [id number] Agent Hemostatic Surgiflo 8 Ml Kit - [id number] Implanted:Qty: 1 on 12/15/2023 by Stanislav Soriano MD at [facility] Sealant Right: Neck [employer] 03/03/2025 [id number] / / [id number] [place] Viabahn Vbx 10mm X 39mm X 80cm-10/12/2023 Implanted:Qty: 1 on 10/12/2023 by Stanislav Soriano MD Stent 06/01/2026 [facility] [employer] [id number] / [id number] / Explanted Type Area Framing Machine Tender Device Identifier Shelf Expiration Date Model / Serial / Lot Kit Shunt Badger Carotid Artery Straight 6in 4 Tube Bevel Tip Radiopaque Pvc 8-14fr Sterile - [id number] Explanted:Qty: 1 on 10/15/[address] [facility] Shunt Left: Neck [employer] [id number] / / Kit Shunt Badger Carotid Artery Straight - [id number] Explanted:Qty: 1 on 12/15/2023 by Stanislav Soriano MD at [facility] Shunt Right: Carotid [employer] 11/10/2027 [id number] / / [id number] Procedures Procedure Name Priority Date/Time Associated Diagnosis Comments LIPID PANEL Routine 10/10/2023 5:20 AM CDT HEMOGLOBIN, GLYCOSYLATED Routine 10/10/2023 5:[address] ABD+PEL W CON STAT 03/30/2021 2:32 PM [employer]AF [employer] from Last 3 Months or Most Recently Relevant to Health Maintenance Results * HEMOGLOBIN, GLYCATED (10/10/2023 5:20 AM CDT) HGB A1C 5.4 <5.7 % 10/10/2023 5:55 AM CDT [facility] ESTIMATED AVG GLUCOSE 108 74 - 114 MG/DL 10/10/2023 5:55 AM CDT [facility] 10/10/2023 5:20 AM CDT Cristhian De Jesus MD LABORATORY Final Res ult Performing Organization Address [facility] Co de Phone Number [facility] [address] [place] [address], [phone] * (ABNORMAL) LIPID PANEL (10/10/2023 5:20 AM CDT) CHOLESTEROL 129 MG/DL 10/10/2023 6:04 AM CDT [facility] Comment:DESIRABLE: <200 TRIGLYCERIDES 83 MG/DL 10/10/2023 6:04 AM CDT [facility] Comment:<150 NORMAL HDL 37(L) >39 MG/DL 10/10/2023 6:04 AM CDT [facility] LDL (CALCULATED) 75 MG/DL 10/10/19 6:04 AM CDT [facility] Comment:<100 OPTIMAL VLDL CALCULATION 17 MG/DL 10/10/19 6:04 AM CDT [facility] Comment:REFERENCE RANGE NOT ESTABLISHED CHOL/HDL RATIO 3.5 10/10/2023 6:04 AM CDT [facility] Comment:REFERENCE RANGE NOT ESTABLISHED LDL/HDL 2.0 10/10/2023 6:04 AM CDT [facility] Comment:REFERENCE RANGE NOT ESTABLISHED NON HDL CHOLESTEROL 92 MG/DL 10/10/2023 6:04 AM CDT [facility] Comment:REFERENCE RANGE NOT ESTABLISHED 10/10/2023 5:20 AM CDT Cristhian De Jesus MD LABORATORY Final Res ult Performing Organization Address [facility] Co de Phone Number [facility] [address] [place] [address], [phone] * CT ABD+PEL W IV CON ONLY (03/30/2021 2:32 PM [employer]AF [employer]ER) Anatomical Region Laterality Modality Abdomen Computed Tomogra phy 03/30/2021 2:38 PM [employer] Impressions 03/30/2021 2:40 PM [employer] IMPRESSION: Findings suggest acute cholecystitis. General surgery consultation is recommended. Other findings as described above. Ordered By: HILARY MATTHEW Interpreted By: Chaz Ibanez, 03/30/2021 2:38 PM Narrative 03/30/2021 2:[address] Abdomen With Contrast CT Pelvis With Contrast Clinical Indication: Right quadrant pain Technique: Axial CT images from the lung bases through the pubic symphysis were obtained following intravenous administration of Isovue 370 75 cc. Coronal and sagittal reconstructions. Radiation reduction techniques were employed. Findings: Mild bibasilar atelectasis is noted. The liver, spleen, pancreas are normal appearing. The adrenal glands are somewhat hyperplastic. The kidneys, ureters and bladder prostate are grossly unremarkable. The gallbladder wall is diffusely thickened. Gallstones are seen within the gallbladder. The abdominal vasculature demonstrates mild atherosclerosis. No abnormal fluid collections or lymph nodes are seen in the abdomen. Diverticulosis is noted without evidence of diverticulitis. Degenerative changes are seen in the spine. Procedure Note Chaz Ibanez, DO - 03/30/[address] CT [address] With Contrast CT Pelvis With Contrast Clinical Indication: Right quadrant pain Technique: Axial CT images from the lung bases through the pubic symphysiswere obtained following intravenous administration of Isovue 370 75 cc.Coronal and sagittal reconstructions. Radiation reduction techniques wereemployed. Findings: Mild bibasilar atelectasis is noted. The liver, spleen, pancreas arenormal appearing. The adrenal glands are somewhat hyperplastic. Thekidneys, ureters and bladder prostate are grossly unremarkable. Thegallbladder wall is diffusely thickened. Gallstones are seen within thegallbladder. The abdominal vasculature demonstrates mild atherosclerosis.No abnormal fluid collections or lymph nodes are seen in the abdomen.Diverticulosis is noted without evidence of diverticulitis. Degenerativechanges are seen in the spine. IMPRESSION: Findings suggest acute cholecystitis. General surgeryconsultation is recommended. Other findings as described above. Ordered By: HILARY MATTHEW Interpreted By: Chaz Ibanez, 03/30/2021 2:38 PM Hilary Matthew PA CT Final Resul t from Last 3 Months or Most Recently Relevant to Health Maintenance Insurance [employer] Advance Directives Documents on File Type Date Recorded Patient Under Seal Operator Expl anation Advance Directives and Living Will 04/01/2021 8:35 AM 04/01/2021 POA FOR HEALTH CARE * Full Code (Latest Code Status on File) Date Activated Date Inactivated Comments 12/16/2023 4:07 PM 12/16/2023 8:14 PM * Full Code Date Activated Date Inactivated Comments 10/15/2023 2:20 PM 10/18/2023 3:14 PM * Full Code Date Activated Date Inactivated Comments 10/09/2023 8:47 PM 10/15/2023 2:20 PM * Full Code Date Activated Date Inactivated Comments 04/01/2021 10:18 AM 04/02/2021 4:44 PM Care Teams Construction Plumber Relationship Specialty Start Date End Date Emerson Randhawa DO [address] [place] [address] PCP - General FAMILY PRACTICE 06/13/23
[2024-09-01 07:54] LABS: Potassium 3.9 mmol/L (3.4-5.0)
[2024-09-01 07:55] LABS: Alanine Aminotransferase 27 U/L (6-50); Alkaline Phosphatase 306 U/L (38-126); Anion Gap 8.99999 mmol/L (4-12); Aspartate Amino Transferase 41 U/L (17-59); Bilirubin,Total 1.7 mg/dL (0.2-1.3); Blood Urea Nitrogen 23 mg/dL (9-20); Calcium 8.9 mg/dL (8.4-10.2); Carbon Dioxide > 40 mmol/L (22-30); Chloride 93 mmol/L (98-107); Estimated Glomerular Filt Rate > 60; Glucose 100 mg/dL (65-110); Osmolality Calculated 297 mOsm/kg (285-295); Sodium 142 mmol/L (137-145)
[2024-09-01 08:18] LABS: Prostate Specific Antigen 1.6 ng/mL (< OR = 4.0)
== END 2024-08-31 15:27 | disposition home or self-care (01) ==
LOC: CHSLAB 15:30
PROVIDERS: PCP Family Medicine; Visit Provider Nurse Practitioner Family
DX: R39.11 Hesitancy of micturition (principal); E87.0 Hyperosmolality and hypernatremia; Z12.5 Encounter for screening for malignant neoplasm of prostate
CPT/HCPCS: 36415; 80053; 84153; G0103

== ENCOUNTER 2025-03-07 15:34 | Outpatient (CLI) | payer MEDICARE, OTHER, SELFPAY ==
[2025-03-07 15:57] LABS: Add Urine Microscopic? YES; Appearance Urine Clear (Clear); Glucose Urine UA Negative (Negative); Leukocyte Esterase Ur Negative LEU/UL (Negative); Nitrate Urine Negative (Negative); Specific Grav Ur 1.010 (1.010-1.020)
[2025-03-07 16:37] LABS: Anion Gap 8.99999 mmol/L (4-12); Blood Urea Nitrogen 28 mg/dL (9-20); Calcium 9.2 mg/dL (8.4-10.2); Carbon Dioxide > 40 mmol/L (22-30); Chloride 95 mmol/L (98-107); Estimated Glomerular Filt Rate > 60; Glucose 102 mg/dL (65-110); Magnesium 2.1 mg/dL (1.6-2.3); Osmolality Calculated 303 mOsm/kg (285-295); Potassium 3.8 mmol/L (3.4-5.0); Sodium 144 mmol/L (137-145)
--- OUTSIDE RECORDS SUMMARY | 2025-03-07 16:42 | XMS_ITS | Clinical Summary ---
Author Organization [facility] Address [address] [place] [address] Care Team Providers Care Geospatial Scientist Name Role Phone PabloEmerson ulloa Primary Care Provider [phone] Allergies No known active allergies Medications lisinopril [...] biliary calculus 03/05 Type 2 diabetes mellitus without complications Encounters Date Type Department Care Team Description 02/15/2025 1:29 PM CDT - 02/15/2025 11:59 PM CDT Hospital Encounter [facility] [address] [place] [address] Lori Bahena MD Discharge Disposition: Home or Self Care (Routine Discharge) 02/15/2025 Travel 01/19/2025 Community Orders [facility] EP[facility] Lori Bahena MD from Last 3 Months Family History Medical History Relation Comments Cancer Brother Early Brother Heart Disease Father Relation Status Comments Brother Father Social History Tobacco Use Types Packs/Day Years Used Date Smoking Tobacco: Every Day Cigarettes 0.9 54.9 Started: 03/30/1970 Smokeless Tobacco: Former Chew Tobacco Cessation:Ready to Q uit: Not Asked; Counseling Given: Not Answered Comments:current smoker refused nicotine patch Alcohol Use Standard Drinks/Week Comments Yes 23.3 (1 standard drink = 0.6 oz pure alcohol) 2 beers daily [facility] Utilities Answer Date Recorded In the past 12 months has e [employer], oil, or water [employer] threatened to shut off services in your [...] any time in the past 12 m [facility], were you homeless or living in a assisted (including now)? No 12/16/2023 Education Answer Date Recorded What is the highest level of school you have completed or the highest degree you have received? 12th grade 03/30/2021 Sex and Gender Information Value Date Recorded Sex Assigned at Male 03/30/2021 10:26 PM REVERBERATORY SKIMMER Legal Sex Male 12:13 PM REVERBERATORY SKIMMER Gender Identity Male 03/30/2021 10:26 PM REVERBERATORY SKIMMER Sexual Orientation Straight 03/30/2021 10 :26 PM REVERBERATORY SKIMMER Occupation Industry Job Start Date Job End [...] A M CDT Height 181 cm (5' 11.26) 12/15/2023 8:19 AM CD T Body Mass Index 26.59 12/15/2023 8:19 AM CDT Plan of Treatment Health Maintenance Due Date Last Done Comments ASCVD Statin 1950 Colorectal Cancer Screening Colonoscopy (10 Years) 1950 Kidney Health Evaluation 1950 Diabetes: Retinopathy Eye Exam 1968 Hepatitis C 1968 DTaP, Tdap and Td Vaccines ( 1 - Tdap) 1969 Pneumococcal Vaccine: 50+ Ye ars (1 of 2 - PCV) 1969 Zoster Vaccines (1 of 2) 2000 Annual Medicare Wellness Visit 12/25/2015 Hemoglobin A1C 04/10/2024 10/10/2023 ASCVD LDL 10/09/2024 10/10/2023 Lipid Panel 10/09/2024 10/10/2023 COVID-19 Vaccine (2024-2 6 season) 2025 Influenza Adult (#1) 2025 RSV Immunization or 60+ Years (1 - 1-dose 75+ series) 2025 Hepatitis A Vaccines Aged Out No long er eligible based on patient's age to complete this topic Meningococcal B Vaccine Aged Out No l [...] Meneses RN Medical Devices Implanted Type Area Professional Nurse Device Identifier Shelf Expiration Date Model / Serial / Lot Graft Intergard Woven 8mm X 30cm - [id number] Implanted:Qty: 1 on 10/15/2023 by Lori Bahena MD at [facility] Graft Left: Neck [employer] 10/02/2027 [id number] / [id number] Description:Ingwie notified Patch Sudha. Vasc. Vascu-Guard 0.8cm X 8cm - [id number] Implanted:Qty: 1 on 10/15/2023 by Lori Bahena MD at [facility] Mesh Left: Neck MONTOYA [employer] - BIOS[employer]ENCE 04/29/2025 [id number] / / [id number]- [id number] Patch Sudha. Vasc. Vascu-Guard 0.8cm X 8cm - [id number] Implanted:Qty: 1 on 12/15/2023 by Lori Bahena MD at [facility] Mesh Right: Carotid MONTOYA [employer] - BI[employer]CIENCE 07/13/2025 [id number] / / [id number]- [id number] Agent Hemostatic Surgiflo 8 Ml Kit - [id number] Implanted:Qty: 1 on 10/15/2023 by Lori Bahena MD at [facility] Sealant Left: Neck [employer] 08/31/2024 [id number] / / [id number] Agent Hemostatic Surgiflo 8 Ml Kit - [id number] Implanted:Qty: 1 on 10/15/2023 by Lori Bahena MD at [facility] Sealant Left: Neck [employer] [id number] 08/31/2024 [id number] / / [id number] Agent Hemostatic Surgiflo 8 Ml Kit - [id number] Implanted:Qty: 1 on 10/15/2023 by Lori Bahena MD at [facility] Sealant Left: Neck [employer] [id number] 08/31/2024 [id number] / / [id number] Agent Hemostatic Surgiflo 8 Ml Kit - [id number] Implanted:Qty: 1 on 12/15/2023 by Lori Bahena MD at [facility] Sealant Right: Neck [employer] 03/03/2025 [id number] / / [id number] Wl [place] Viabahn Vbx 10mm X 39mm X 80cm-10/12/2023 Implanted:Qty: 1 on 10/12/2023 by Lori Bahena MD Stent 06/01/2026 [employer] [id number] / [id number] / Explanted Type Area Professional Nurse Device Identifier Shelf Expiration Date Model / Serial / Lot Kit Shunt [place] Carotid Artery Straight 6in 4 Tube Bevel Tip Radiopaque Pvc 8-14fr Sterile - [id number] Explanted:Qty: 1 on 10/15/[address] [facility] Shunt Left: Neck [facility] [facility] [employer] [id number] / / Kit Shunt [place] Carotid Artery Straight - [id number] Explanted:Qty: 1 on 12/15/2023 by Lori Bahena MD at [facility] Shunt Right: Carotid [employer] 11/10/2027 [id number] / / [id number] Procedures Procedure Name Priority Date/Time Associated Diagnosis Comments USV CAROTID DUPLEX EYAD Routine 02/15/2025 2:24 PM CDT Carotid occlusion, bilateral LIPID PANEL Routine 10/10/2023 5:20 AM CDT HEMOGLOBIN, GLYCOSYLATED Routine 10/10/2023 5:20 AM CDT from Last 3 Months or Most Recently Relevant to Health Maintenance Results * USV CAROTID DUPLEX EYAD (02/15/2025 2:24 PM CDT) Anatomical Region Laterality Modality Neck Ultrasound 02/15/2025 1:39 PM CDT Narrative 02/17/2025 10:54 AM CDT S Vascular Report Pat.Name: DARION DYSON Pat.ID: [id number] .Date: 02/15/2025 Refer.MD: LORI BAHENA Exam Time: 1:39:00 PM Study Type:PVI CAROTID SCAN - BILATERAL Age: 8 1950,74Y Sex: M Sonogrphr: Tres Cho RVT, CS Pat. Stat.:Inpatient ICD - 9: I65.23 Carotid occlusion/Stenosis bilateral CPT - 4: 04557 Carotid Duplex Reason for Study:Carotid Stenosis Race: W ++++++++++++++++++++++++++++++++++++ FINDINGS: ++++++++++++++++++++++++++++++++++++ Rt Innom: The innominate artery is unable to be obtained. Rt Subcl: The proximal subclavian artery is patent. Rt ICA: 0-39% stenosis without plaque noted in the internal carotid artery. ICA status post endarterectomy appears patent. Rt ECA: Patent with antegrade flow noted in the external carotid artery. Rt Vert: Normal antegrade vertebral flow. Lt Subcl: A patent proximal subclavian stent is noted. Elevated velocties noted at the proximal anastamosis of the mid subclavian to ica bypass graft without the appearance of stenosis by color doppler or grayscale imaging. Lt CCA: Total occlusion noted in the distal common carotid artery. Lt ICA: 0-39% stenosis with plaque noted in the internal carotid artery. Mild heterogeneous plaque noted. Lt ECA: Patent with antegrade flow noted in the external carotid artery. Lt Vert: Normal antegrade vertebral flow. ++++++++++++++++++++++++++++++++++++ MEASUREMENTS: ++++++++++++++++++++++++++++++++++++ DOPPLER Right CCA Prox Prox CCA PSV 119 cm/s Prox CCA EDV 11.2 cm/s Right CCA Dist Dist CCA PSV 133 cm/s Dist CCA EDV 14.9 cm/s Right ICA Prox Prox ICA PSV 101 cm/s Prox ICA EDV 17.5 cm/s Right Mid ICA Mid ICA PSV 87 cm/s Mid ICA EDV 18 cm/s Right Dist ICA Dist ICA PSV 68 cm/s Dist ICA EDV 19 cm/s Right ECA Prox Prox ECA PSV 79.1 cm/s Right Vertebral Vertebral PSV 51 cm/s Vertebral EDV 17 cm/s Right Prox SCA Prox SCA PSV 119 cm/s Right ICA/CCA RATIO ICA/CCA RATIO P 0.759 Left CCA Dist Dist CCA PSV 0 cm/s Left ICA Prox Prox ICA PSV 72.4 cm/s Prox ICA EDV 27.4 cm/s Left ICA Mid Mid ICA PSV 76.3 cm/s Mid ICA EDV 48.8 cm/s Left ICA Dist Dist ICA PSV 70.2 cm/s Dist ICA EDV 42.3 cm/s Left ECA Prox Prox ECA PSV 69.7 cm/s Prox ECA EDV 23 cm/s Left Vertebral Vertebral PSV 54.9 cm/s Vertebral EDV 14.3 cm/s Left Prox SCA Prox SCA PSV 186 cm/s GRAFT Left Prox [place] Mid SCA:Bypass Graft Sally Vessel PSV 218 cm/s Left Prox Anastomosis Mid SCA:Bypass Graft Prox Anast PSV 346 cm/s Left Prox Mid SCA:Bypass Graft Prox PSV 117 cm/s Left Mid Mid SCA:Bypass Graft Mid PSV 87 cm/s Left Dist Mid SCA:Bypass Graft Dist PSV 75 cm/s Left Dist Anastomosis Mid SCA:Bypass Graft Dist Anast PSV 68 cm/s Left Prox Stent Prox SCA:Stent Prox Stent PSV 186 cm/s Left Mid Stent Prox SCA:Stent Mid Stent PSV 152 cm/s Left Dist Stent Prox SCA:Stent Dist Stent PSV 133 cm/s Left Dist [place] Mid SCA:Bypass Graft Dist [place] PSV 72 cm/s <Electronic Signature> 02/17/2025 10:54 AM Johnathon Murray M.D. Procedure Note Johnathon Murray MD - 02/17/2025 SJS Vascular Report Pat.Name: DARION DYSON Pat.ID: [id number] .Date: 02/15/2025 Refer.MD: LORI BAHENA Exam Time: 1:39:00 PM Study Type:PVI CAROTID SCAN - BILATERAL Age: 8 1950,74Y Sex: M Sonogrphr: Tres Cho RVT, [facility] Pat. Stat.:Inpatient ICD - 9: I65.23 Carotid occlusion/Stenosis bilateral CPT - 4: 53355 Carotid Duplex Reason for Study:Carotid Stenosis Race: W ++++++++++++++++++++++++++++++++++++ FINDINGS: ++++++++++++++++++++++++++++++++++++ Rt Innom: The innominate artery is unable to be obtained. Rt Subcl: The proximal subclavian artery is patent. Rt ICA: 0-39% stenosis without plaque noted in the internal carotid artery. ICA status post endarterectomy appears patent. Rt ECA: Patent with antegrade flow noted in the external carotid artery. Rt Vert: Normal antegrade vertebral flow. Lt Subcl: A patent proximal subclavian stent is noted. Elevated velocties noted at the proximal anastamosis of the mid subclavian to ica bypass graft without the appearance of stenosis by color doppler or grayscale imaging. Lt CCA: Total occlusion noted in the distal common carotid artery. Lt ICA: 0-39% stenosis with plaque noted in the internal carotid artery. Mild heterogeneous plaque noted. Lt ECA: Patent with antegrade flow noted in the external carotid artery. Lt Vert: Normal antegrade vertebral flow. ++++++++++++++++++++++++++++++++++++ MEASUREMENTS: ++++++++++++++++++++++++++++++++++++ DOPPLER Right CCA Prox Prox CCA PSV 119 cm/s Prox CCA EDV 11.2 cm/s Right CCA Dist Dist CCA PSV 133 cm/s Dist CCA EDV 14.9 cm/s Right ICA Prox Prox ICA PSV 101 cm/s Prox ICA EDV 17.5 cm/s Right Mid ICA Mid ICA PSV 87 cm/s Mid ICA EDV 18 cm/s Right Dist ICA Dist ICA PSV 68 cm/s Dist ICA EDV 19 cm/s Right ECA Prox Prox ECA PSV 79.1 cm/s Right Vertebral Vertebral PSV 51 cm/s Vertebral EDV 17 cm/s Right Prox SCA Prox SCA PSV 119 cm/s Right ICA/CCA RATIO ICA/CCA RATIO P 0.759 Left CCA Dist Dist CCA PSV 0 cm/s Left ICA Prox Prox ICA PSV 72.4 cm/s Prox ICA EDV 27.4 cm/s Left ICA Mid Mid ICA PSV 76.3 cm/s Mid ICA EDV 48.8 cm/s Left ICA Dist Dist ICA PSV 70.2 cm/s Dist ICA EDV 42.3 cm/s Left ECA Prox Prox ECA PSV 69.7 cm/s Prox ECA EDV 23 cm/s Left Vertebral Vertebral PSV 54.9 cm/s Vertebral EDV 14.3 cm/s Left Prox SCA Prox SCA PSV 186 cm/s GRAFT Left Prox [place] Mid SCA:Bypass Graft Sally Vessel PSV 218 cm/s Left Prox Anastomosis Mid SCA:Bypass Graft Prox Anast PSV 346 cm/s Left Prox Mid SCA:Bypass Graft Prox PSV 117 cm/s Left Mid Mid SCA:Bypass Graft Mid PSV 87 cm/s Left Dist Mid SCA:Bypass Graft Dist PSV 75 cm/s Left Dist Anastomosis Mid SCA:Bypass Graft Dist Anast PSV 68 cm/s Left Prox Stent Prox SCA:Stent Prox Stent PSV 186 cm/s Left Mid Stent Prox SCA:Stent Mid Stent PSV 152 cm/s Left Dist Stent Prox SCA:Stent Dist Stent PSV 133 cm/s Left Dist [place] Mid SCA:Bypass Graft Dist [place] PSV 72 cm/s <Electronic Signature> 02/17/2025 10:54 AM Johnathon Murray M.D. Lori Bahena MD [facility] Final Resu lt * HEMOGLOBIN, GLYCATED (10/10/2023 5:20 AM CDT) HGB A1C 5.4 <5.7 % 10/10/2023 5:55 AM CDT [facility] ESTIMATED AVG GLUCOSE 108 74 - 114 MG/DL 10/10/2023 5:55 AM CDT [facility] 10/10/2023 5:20 AM CDT Cristhian De Jesus MD LABORATORY Final Res ult [facility] [address] [place] [address], [id number] * (ABNORMAL) LIPID PANEL (10/10/2023 5:20 AM CDT) Pathologist [facility] CHOLESTEROL 129 MG/DL 10/10/2023 6:04 AM CDT [facility] Comment:DESIRABLE: <200 TRIGLYCERIDES 83 MG/DL 10/10/2023 6:04 AM CDT [facility] Comment:<150 NORMAL HDL 37(L) >39 MG/DL 10/10/2023 6:04 AM CDT [facility] LDL (CALCULATED) 75 MG/DL 10/10/19 6:04 AM CDT [facility] Comment:<100 OPTIMAL VLDL CALCULATION 17 MG/DL 10/10/19 6:04 AM CDT [facility] Comment:REFERENCE RANGE NOT ESTABLISHED CHOL/HDL RATIO 3.5 10/10/2023 6:04 AM CDT [facility] Comment:REFERENCE RANGE NOT ESTABLISHED LDL/HDL 2.0 10/10/2023 6:04 AM CDT [facility] Comment:REFERENCE RANGE NOT ESTABLISHED NON HDL CHOLESTEROL 92 MG/DL 10/10/2023 6:04 AM CDT [facility] Comment:REFERENCE RANGE NOT ESTABLISHED 10/10/2023 5:20 AM CDT Cristhian De Jesus MD LABORATORY Final Res ult [facility] [address] [place] [address], [id number] from Last 3 Months or Most Recently Relevant to Health Maintenance Insurance MEDICARE [employer] Advance Directives Documents on File Type Date Recorded Patient Evp Global Product Leadership Expl anation Advance Directives and Living Will [...] 10:18 AM 04/02/2021 4:44 PM Care Teams Geospatial Scientist Relationship Specialty Start Date End Date Emerson Randhawa DO [address] [place] [address] PCP - General FAMILY PRACTICE 06/13/23
--- OUTSIDE RECORDS SUMMARY | 2025-03-07 16:42 | XMS_ITS | Encounter Summary ---
Author Organization [facility] Address [facility] [place] [address] Care Team Providers Care Swing Frame Grinder Operator Name Role Phone Emerson Randhawa DO Primary Care Provider [phone] Reason for Referral * Imaging (Routine) - Closed Specialty Diagnoses / Procedures Referred By Iqra t Referred To Contact RADIOLOGY Diagnoses Carotid occlusion, bilateral Procedures USV CAROTID DUPLEX EYAD Lori Bahena MD [address] [address] Phone: tel: fax: Referral ID Status Reason Start Date Expiration Date Visits Re quested Visits Authorized [id number] Closed 01/20/2025 01/20/2026 1 1 * Imaging (Routine) - Authorized Specialty Diagnoses / Procedures Referred By Iqra alejandra Referred To Contact RADIOLOGY Diagnoses Peripheral vascular disease, unspecified Procedures USV ART DUPLEX UP LT Lori Bahena MD [address] [address] Phone: tel: fax: Referral ID Status Reason Start Date Expiration Date V isits Requested Visits Authorized [id number] Authorized 01/20/2025 01/20/2026 1 1 Encounter Details Date Type Department Care Team (Late st Contact Info) Description 01/19/2025 Community Orders [facility] [place] EPICCARE LINK Lori Bahena MD [address] [address] Social History Tobacco Use Types Packs/Day Years Used Date Smoking Tobacco: Every Day Cigarettes 0.9 54.9 Started: 03/30/1970 Smokeless Tobacco: Former Chew Comments:current smoker refu sed nicotine patch Alcohol Use Standard Drinks/Week Comments Yes 23.3 (1 standard drink = 0.6 oz pure alcohol) 2 beers daily [facility] Utilities Answer Date Recorded In the past 12 months has e [employer], gas, oil, or water [employer] threatened to shut off services in your [...] any time in the past 12 m [facility], were you homeless or living in a custodial (including now)? No 12/16/2023 Education Answer Date Recorded What is the highest level of school you have completed or the highest degree you have received? 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 Answer Date of Assessment Author Status No 12/15/2023 8:31 AM Malini Smalls RN Active * Do you have serious difficulty walking or climbing stairs? Answer Date of Assessment Author Status Yes 12/15/2023 8:31 AM Malini Smalls RN Active * Do you have difficulty dressing or bathing? Answer Date of Assessment Author Status No 12/15/2023 8:31 AM Malini Smalls RN Active * Because of a physical, mental, or emotional condition, do you have difficulty doing errands alone such as visiting a doctor's office or shopping? Answer Date of Assessment Author Status No 12/15/2023 8:31 AM Malnii Smalls RN Active documented as of this encounter Mental Status * Because of a physical, mental, or emotional condition, do you have serious difficulty concentrating, remembering, or making decisions? Answer Entry Date Author Status No 12/15/2023 8:31 AM CDT Malini Beavers RN Active documented in this encounter Plan of Treatment Scheduled Orders Name Type Priority Associated Diagnoses Orde r Schedule USV ART DUPLEX UP LT [facility] Routine Peripheral vascular disease, unspecified Expected: 01/20/2025, Expires: 01/20/2026 documented as of this encounter Goals Goal Patient Goal Type Associated Problems Recent Progress Patient-Stated? Author Patient will return to prior living situation and remain independent in ADLs upon discharge from hospital Lifestyle No Pema Meneses RN documented as of this encounter Results * USV CAROTID DUPLEX EYAD (02/15/2025 2:24 PM CDT) Anatomical Region Laterality Modality Neck Ultrasound 02/15/2025 1:39 PM CDT Narrative 02/17/2025 10:54 AM CDT [facility] Vascular Report Pat.Name: DUSTYJOSE DE JESUSDARION Pat.ID: [id number] .Date: 02/15/2025 Refer.MD: LORI BAHENA Exam Time: 1:39:00 PM Study Type:PVI CAROTID SCAN - BILATERAL Age: 8 1950,74Y Sex: M Sonogrphr: Tres Cho RVT, CS Pat. Stat.:Inpatient ICD - 9: I65.23 Carotid occlusion/Stenosis bilateral CPT - 4: 81867 Carotid Duplex Reason for Study:Carotid Stenosis Race: [...] SCA PSV 186 cm/s GRAFT Left Prox [place] Mid SCA:Bypass Graft Sally Vessel PSV 218 [...] Dist Stent PSV 133 cm/s Left Dist [place] Mid SCA:Bypass Graft Dist [place] PSV 72 cm/s <Electronic Signature> 02/17/2025 10:54 AM Johnathon Murray M.D. Procedure Note Johnathon Murray MD - 02/17/2025 S Vascular Report Pat.Name: DARION DYSON Pat.ID: [id number] .Date: 02/15/2025 Refer.MD: LORI BAHENA Exam Time: 1:39:00 PM Study Type:PVI CAROTID SCAN - BILATERAL Age: 8 1950,74Y Sex: M Sonogrphr: Tres Cho RVT, RDCS Pat. Stat.:Inpatient ICD - 9: I65.23 Carotid occlusion/Stenosis bilateral CPT - 4: 17661 Carotid Duplex Reason for Study:Carotid Stenosis Race: [...] SCA PSV 186 cm/s GRAFT Left Prox [place] Mid SCA:Bypass Graft Sally Vessel PSV 218 [...] Dist Stent PSV 133 cm/s Left Dist [place] Mid SCA:Bypass Graft Dist [place] PSV 72 cm/s <Electronic Signature> 02/17/2025 10:54 AM Johnathon Murray M.D. us Lori Bahena MD [facility] Final Resu lt documented in this encounter Visit Diagnoses Diagnosis Peripheral vascular disease, unspecified- Primary Carotid occlusion, bilateral Occlusion and stenosis of carotid artery without mention of cerebral infarction Peripheral vascular disease, unspecified Carotid occlusion, bilateral Occlusion and stenosis of carotid artery without mention of cerebral infarction documented in this encounter Care Teams Swing Frame Grinder Operator Relationship Specialty Start Date End Date Emerson Randhawa DO [address] [place] [address] PCP - General FAMILY PRACTICE 06/13/23 documented as of this encounter
== END 2025-03-07 15:35 | disposition home or self-care (01) ==
LOC: CHSLAB 15:35
PROVIDERS: Internal Medicine Cardiovascular Disease; PCP Nurse Practitioner Family; Visit Provider Nurse Practitioner Family
DX: R39.11 Hesitancy of micturition (principal); I50.9 Heart failure, unspecified
CPT/HCPCS: 36415; 80048; 81001; 83735

== ENCOUNTER 2025-04-10 14:16 | Outpatient (CLI) | payer MEDICARE, OTHER, SELFPAY ==
[2025-04-10] VITALS (7 sets, daily range): PULSE 64–86; O2SAT 57–90
--- NOTE | 2025-04-10 14:56 | HOMEO2EVAL ---
Evaluation was performed at [facility] Home Oxygen Evaluation RC: Home Oxygen (O2) Evaluation Start: 04/10/25 14:44 Freq: Status: Active Protocol: RPE Activity Type Activity Date Activity User E-sign Co-sign Detail Recorded Client Recorded Date Recorded By Document 04/10/25 14:44 DV [id number] 04/10/25 14:49 DV Document 04/10/25 14:49 DV [id number] 04/10/25 14:49 DV Document 04/10/25 14:49 DV [id number] 04/10/25 14:50 DV Document 04/10/25 14:50 DV [id number] 04/10/25 14:51 DV Document 04/10/25 14:51 DV [id number] 04/10/25 14:52 DV Document 04/10/25 14:52 DV [id number] 04/10/25 14:53 DV Document 04/10/25 14:54 DV [id number] 04/10/25 14:55 DV Document 04/10/25 14:55 DV [id number] 04/10/25 14:56 DV 04/10/25 04/10/25 04/10/25 14:44 14:49 14:49 Home O2 Evaluation [Oxygen] -Test Phase Resting Resting Resting -Oxygen Delivery Room Air Nasal Cannula Nasal Cannula -Oxygen Flow Rate (L/min) 1 2 [Pulse Oximetry] -Pulse Oximetry (90-100 %) 57 L 60 L 65 L [Pulse Rate] -Pulse Rate (60-100 beats/min) 86 84 77 [Evaluation] -Activity Tolerance -Rating of Perceived Dyspnea (PD) -Rate of Perceived Exertion (PE) Query Text:Click the Protocol Button to View the RPE Scale [Exercise] -Ambulation Distance (feet) -Ambulation Distance (meters) [Comments] -Home Oxygen Evaluation Comments Will increase Will increase Will increase O2 to 1L at O2 to 2L at O2 to 3L at rest rest rest [Charges] -Evaluation Charges 04/10/25 04/10/25 04/10/25 14:50 14:51 14:52 Home O2 Evaluation [Oxygen] -Test Phase Resting Resting Exercise -Oxygen Delivery Nasal Cannula Nasal Cannula Nasal Cannula -Oxygen Flow Rate (L/min) 3 4 4 [Pulse Oximetry] -Pulse Oximetry (90-100 %) 80 L 90 87 L [Pulse Rate] -Pulse Rate (60-100 beats/min) 64 76 83 [Evaluation] -Activity Tolerance Good -Rating of Perceived Dyspnea (PD) +2 Mild, Some Difficulty, Noticeable to the Observer -Rate of Perceived Exertion (PE) 11 Fairly light Query Text:Click the Protocol Button to View the RPE Scale [Exercise] -Ambulation Distance (feet) 30 -Ambulation Distance (meters) 9.14 [Comments] -Home Oxygen Evaluation Comments Will increase Will begin walk Will increase O2 to 4L at on 4L O2. O2 to 5L and rest will continue walk. [Charges] -Evaluation Charges 04/10/25 04/10/25 14:54 14:55 Home O2 Evaluation [Oxygen] -Test Phase Exercise Exercise -Oxygen Delivery Nasal Cannula Nasal Cannula -Oxygen Flow Rate (L/min) 5 6 [Pulse Oximetry] -Pulse Oximetry (90-100 %) 87 L 89 L [Pulse Rate] -Pulse Rate (60-100 beats/min) 78 81 [Evaluation] -Activity Tolerance Good Good -Rating of Perceived Dyspnea (PD) +2 Mild, Some +2 Mild, Some Difficulty, Difficulty, Noticeable to Noticeable to the Observer the Observer -Rate of Perceived Exertion (PE) 12 12 Query Text:Click the Protocol Button to View the RPE Scale [Exercise] -Ambulation Distance (feet) 40 70 -Ambulation Distance (meters) 12.19 21.33 [Comments] -Home Oxygen Evaluation Comments Will increase Patient O2 to 6L and instructed on will continue pursed lip walk. breathing techniques. Pt will need 4L at rest and 6L with activity. [Charges] -Evaluation Charges O2 Evaluation Charge
== END 2025-04-10 14:17 | disposition home or self-care (01) ==
PROVIDERS: PCP Nurse Practitioner Family; Visit Provider Nurse Practitioner Family
DX: I50.9 Heart failure, unspecified (principal); R79.81 Abnormal blood-gas level
CPT/HCPCS: 94618